=== PATIENT | female | born 2000 | race Caucasian/White ===

== ENCOUNTER 2019-10-29 13:17 | Emergency (ER) | payer OTHER ==
[2019-10-29] MEDS ORDERED: DEXAMETHASONE SOD PHOS INJ 10 MG/1 ML VIAL IM ONE (14:02)
--- NOTE | 2019-10-29 14:02 | ER Document Report ---
HPI - HPI Time Seen by Provider: 10/29/19 13:59 Pain Level: 1 Notes: Otherwise healthy 19-year-old female presenting to the emergency department with chief complaint of sore throat. Patient reports history of strep in the past, states this feels similar. Patient reports pain with swallowing but states she is able to swallow. Denies any fever or body aches. - REPRODUCTIVE Reproductive: DENIES: : Past Medical History - General Information source: Patient - Social History Smoking Status: Never Smoker Chew tobacco use (# tins/day): No Frequency of alcohol use: None Drug Abuse: None Family History: Reviewed & Not Pertinent Patient has suicidal ideation: No Patient has homicidal ideation: No - Medical History Medical History: Negative Surgical Hx: Negative - Immunizations Immunizations up to date: Yes Vertical Provider Document - CONSTITUTIONAL Notes: PHYSICAL EXAMINATION: GENERAL: Well-appearing, well-nourished and in no acute distress. HEAD: Atraumatic, normocephalic. EYES: Pupils equal round extraocular movements intact, conjunctiva are normal. ENT: Nares patent, mild bilateral tonsillar swelling noted, mild erythema with small exudates, no evidence of tonsillar abscess, uvula midline. NECK: Normal range of motion LUNGS: No respiratory distress, lung sounds clear and equal bilaterally. Musculoskeletal: Normal range of motion NEUROLOGICAL: Normal speech, normal gait. PSYCH: Normal mood, normal affect. SKIN: Warm, Dry, normal turgor, no rashes or lesions noted. - INFECTION CONTROL TRAVEL OUTSIDE OF THE [place] IN LAST 30 DAYS: No Course - Re-evaluation Re-evalutation: Laboratory 10/29/19 14:00 Group A Strep Rapid NEGATIVE - Vital Signs Vital signs: Temp Pulse Resp BP Pulse Ox 98.7 F 92 16 142/89 H 99 10/29/19 13:21 10/29/19 13:21 10/29/19 13:21 10/29/19 13:21 10/29/19 13:21 Discharge - Discharge Clinical Impression: Sore throat Condition: Stable Disposition: HOME, SELF-CARE Instructions: Sore Throat ([facility]) Additional Instructions: As discussed, the rapid strep was negative. A throat culture is pending. Please take Tylenol or ibuprofen for any pain or fever. Gargle with salt water. Drink warm tea with honey and lemon to help soothe your throat. Return to the emergency department if you are unable to swallow your own saliva or you have any difficulty breathing.
[2019-10-29 15:36] VITALS: BP 127/91
== END 2019-10-29 15:35 | disposition home or self-care (01) ==
LOC: ER 13:17
DX: J02.9 Acute pharyngitis, unspecified (principal)
CPT/HCPCS: 87070; 87880; 99283